=== PATIENT | female | born 1985 | race Caucasian/White ===

== ENCOUNTER 2021-02-04 15:20 | Emergency (ER) | payer BC, OTHER ==
[~2021-02-04 15:20] MED LIST: IBUPROFEN600 MG PO; MEDROL4 MG PO
[2021-02-04 16:23] LABS: HEMOGLOBIN 13.9 gm/dl (12.3-15.3); RED BLOOD COUNT 4.61 M/UL (4.00-5.10); WHITE BLOOD COUNT 11.9 K/UL (4.5-11.0)
[2021-02-04 16:48] LABS: BUN/CREATININE RATIO 12 (0-10)
[2021-02-04] MEDS ORDERED: IBUPROFEN800 MG PO (20:32)
[2021-02-04] MEDS ORDERED: OMNICEF 300 MG300 MG PO (20:32)
[2021-02-04] MEDS ORDERED: ZOFRAN ODT 4 MG4 MG PO (20:32)
[2021-02-04] MEDS ORDERED: FLOMAX 0.4 MG0.4 MG PO (20:32)
[2021-02-04] MEDS ORDERED: HYDROCODON-ACE1 EAC4 PO (20:32)
== END 2021-02-04 20:43 | disposition home or self-care (01) ==
LOC: ER1 15:20
PROVIDERS: Emergency Medicine
DX: N13.2 Hydronephrosis with renal and ureteral calculous obstruction (principal); Z90.89 Acquired absence of other organs
CPT/HCPCS: 80053; 81001; 83690; 84703; 85025; 87086; 96374; 96375; 99284; J0696; J1885; J2270; J2405; J7030; Q9967

== ENCOUNTER 2022-02-21 11:02 | Emergency (ER) | payer BC, OTHER ==
[~2022-02-21 11:02] MED LIST changes: +FLOMAX 0.4 MG0.4 MG PO; +HYDROCODON-ACE1 EAC4 PO; +IBUPROFEN800 MG PO; +OMNICEF 300 MG300 MG PO; +ZOFRAN ODT 4 MG4 MG PO
== END 2022-02-21 16:05 | disposition home or self-care (01) ==
LOC: ER1 11:02
DX: S80.01XA Contusion of right knee, initial encounter (principal); W19.XXXA Unspecified fall, initial encounter; Y92.009 Unspecified place in unspecified non-institutional (private) residence as the place of occurrence of the external cause
CPT/HCPCS: 73564; 99283